=== PATIENT | male | born 1960 | race Caucasian/White ===

== ENCOUNTER 2021-02-03 14:58 | Observation (INO) | payer OTHER, SELFPAY ==
[2021-02-03] VITALS (28 sets, daily range): BP systolic 75–126; BP diastolic 49–76; PULSE 73–123; RESP 11–27; TEMP 35.4–37.4; O2SAT 94–100; BMI 30.2
--- NOTE | ~2021-02-03 | CT_ITS ---
EXAMINATION: CT abdomen pelvis w con DATE: 02/03/2021 16:06 INDICATION: Abdominal pain, cramping and fever TECHNIQUE: Computed tomography (CT) of the abdomen and pelvis was performed with 100 cc Omnipaque 350 intravenous contrast. The dose-length product was 616.03 mGy-cm. Automated exposure control and iter ative reconstruction technique were employed. COMPARISON: CT dated 01/16/2019 FINDINGS: Lung bases are unremarkable. Heart size normal. No significant pleural or pericardial effus ion. There are calcified granulomas of the spleen. There are cholecystectomy clips. There are subtle hypodensities of the liver, too small to characterize. There is fatty infiltration near the falciform ligament. The pancreas, adrenal glands and left kidney are unremarkable. There is a small hypodensity of the ri ght kidney measuring 1 cm, likely benign cysts. No hydronephrosis. Nonobstructive bowel gas pattern. There is a thickened appendix with surrounding inflammatory change, consistent with acute appendiciti s. No evidence for perforation. No free air or free fluid. Colonic diverticulosis without evidence fo r diverticulitis. No significant vascular abnormality. Small fat-containing umbilical hernia. IMPRESSION: 1. Acute uncomplicated appendicitis. Dr. Enrique Triplett discussed with Dr. Dylan Roberts DO at 02/03/2021 16:10 CDT. Reviewed, dictated and finalized at location A.
--- NOTE | 2021-02-03 15:18 | ED.GENADULT ---
HPI - General Adult General Chief complaint: Abdominal Pain Stated complaint: abd cramping Time Seen by Provider: 02/03/21 15:11 Source: RN notes reviewed History of Present Illness HPI narrative: Patient presents to emergency department from home for abdominal pain. Patient states symptoms began approximately 4 hours ago states diffuse abdominal pain described as cramping associated nausea vomiting and diarrhea states he has had subjective fevers at home he denies any chest pain shortness of breath or any other symptoms states he took no medication at home Related Data Allergies Allergy/AdvReac Type Severity Reaction Status Date / Time demeclocycline Allergy Intermediate Unknown Verified 02/19/19 08:28 Penicillins Allergy Unknown Verified 02/04/19 08:23 Review of Systems Review of Systems: Narrative: Gen.: Reports subjective fever Eyes: Denies eye pain or visual change ENT: Denies congestion Respiratory: Denies shortness of breath or cough CV: Denies chest pain or palpitations GI: See HPI denies burning, urgency, frequency or hematuria Musculoskeletal: Denies back pain or muscle pain Neuro: Denies numbness, tingling, weakness or focal weakness Skin: Denies rash Except as documented, all other systems reviewed and negative [facility] Past Medical History Medical History Patient denies significant medical history Family History Family History (Updated 02/04/19 @ 08:23 by DOCTOR UNKNOWN) Father Family history of cardiovascular disease Sibling Carcinoma of colon Other Family history of malignant neoplasm Social History Social History Smoking status: Former smoker Smoking end date: 10/15/01 Alcohol intake: current Exam Narrative: Exam Narrative: APPEARANCE: No acute distress, nontoxic, resting in bed HEENT: Normocephalic, atraumatic, OMM RESPIRATORY: No respiratory distress, clear to auscultation bilaterally with no rhonchi wheezing or rales CARDIOVASCULAR: RRR s murmur ABDOMINAL: Soft nondistended diffusely tender palpation no rebound or guarding MUSCULOSKELETAl: Moves all extremities. No clubbing, cyanosis or edema. NEURO: Awake and alert. Following commands, speech normal, no focal deficits SKIN:: Warm, dry. Normal Color PSYCHIATRIC: Normal affect/mood Course Course Emergency Course: Called discussed with Dr. Chopra for general surgery presentation work-up. Request patient be given Levaquin and Flagyl and will take patient to the OR at this time Dr. Chopra came to see patient in the ED with a car Discussed with patient plan for OR and in agreement at this time Vital Signs Vital signs: Vital Signs Temperature 95.7 F L 02/03/21 15:01 Pulse Rate 116 H 02/03/21 15:01 Respiratory Rate 20 02/03/21 15:01 Blood Pressure 95/61 L 02/03/21 15:01 Pulse Oximetry 97 02/03/21 15:01 Temperature 95.7 F L 02/03/21 15:01 Pulse Rate 123 H 02/03/21 16:47 Respiratory Rate 24 H 02/03/21 16:47 Blood Pressure 112/76 02/03/21 16:47 Pulse Oximetry 97 02/03/21 16:47 Medical Decision Making Vital Signs Vital Signs: Vital Signs Temperature 95.7 F L 02/03/21 15:01 Pulse Rate 116 H 02/03/21 15:01 Respiratory Rate 20 02/03/21 15:01 Blood Pressure 95/61 L 02/03/21 15:01 Pulse Oximetry 97 02/03/21 15:01 Temperature 95.7 F L 02/03/21 15:01 Pulse Rate 123 H 02/03/21 16:47 Respiratory Rate 24 H 02/03/21 16:47 Blood Pressure 112/76 02/03/21 16:47 Pulse Oximetry 97 02/03/21 16:47 Lab Data Result diagrams: 02/03/21 15:09 02/03/21 15:09 Labs: Lab Results 02/03/21 02/03/21 02/03/21 Range/Units 15:09 15:09 15:09 WBC 7.8 (4.5-10.0) K/mm3 RBC 5.75 (4.6-6.20) M/mm3 Hgb 17.2 (14.0-18.0) g/dL Hct 48.5 (42.0-52.0) % MCV 84.3 (80-100) fl MCH 29.9 (26-34) pg MCHC 35.5 (32-36) g/dl RDW
[2021-02-03 15:21] LABS: Basophils Percent Auto 0.3 % (0.2-1.2); Hematocrit 48.5 % (42.0-52.0); Hemoglobin 17.2 g/dL (14.0-18.0); Immature Granulocyte Absolute 0.03 K/mm3 (0.00-0.031); Immature Granulocyte Percent A 0.4 % (0-0.5); Lymphocytes Absolute Auto 0.54 K/mm3 (0.9-3.2); Lymphocytes Percent Auto 6.9 % (18.3-44.2); Mean Corpuscular HGB Conc 35.5 g/dl (32-36); Mean Corpuscular Hemoglobin 29.9 pg (26-34); Mean Corpuscular Volume 84.3 fl (80-100); Mean Platelet Volume 9.1 fl (7.4-10.4); Monocytes Absolute Auto 0.1 K/mm3 (0.1-0.6); Neutrophils Absolute Auto 7.2 K/mm3 (1.3-6.7); Neutrophils Percent Auto 91.4 % (45.5-73.1); Platelet Count Result 193 k/mm3 (150-375); Red Blood Count 5.75 M/mm3 (4.6-6.20); Red Cell Distribution Width 12.5 % (11.5-14.5); White Blood Count 7.8 K/mm3 (4.5-10.0)
[2021-02-03 15:32] LABS: Lactic Acid Reflex 2.2 mmol/L (0.7-2.1)
[2021-02-03 15:34] LABS: Alanine Aminotransferase 17 U/L (4-50); Albumin Level 4.4 g/dL (3.5-5.1); Alkaline Phosphatase 83 U/L (38-126); Anion Gap 11 mmol/L (8-16); Aspartate Amino Transferase 26 U/L (17-59); Bilirubin,Total 2.5 mg/dL (0.2-1.3); Blood Urea Nitrogen 14 mg/dL (9-20); Calcium 8.9 mg/dL (8.4-10.2); Carbon Dioxide 22 mmol/L (22-30); Chloride 102 mmol/L (98-107); Estimated CRCL calculation 71 ml/min; Estimated Glomerular Filt Rate > 60; Glucose 165 mg/dL (75-110); Lipase 50 U/L (23-300); Potassium 3.8 mmol/L (3.4-5.0); Sodium 135 mmol/L (137-145)
[2021-02-03] MEDS: ONDANSETRON INJ 4 MG/2 ML VIAL IV PUSH (15:50)
[2021-02-03] MEDS: SODIUM CHLORIDE 0.9% IV 1,000 ML 999 ML IV CONT ×2 (15:50→16:34)
--- NOTE | 2021-02-03 16:53 | WPDANESEPP ---
Anes - Eval Pre Procedure Procedure: Operation Date: 02/03/21 17:00 Proposed Procedures p Laparoscopic Appendectomy - Shauna Chopra MD Date/Time: 02/03/21 16:53 Pre Op Diagnosis: abd cramping Patient Data Age: 60 Gender: M Height: 1.83 m Weight: 90.7 kg Last Vital Signs Temp 35.4 C L 02/03/21 15:01 Pulse 123 H 02/03/21 16:47 Resp 24 H 02/03/21 16:47 BP 112/76 02/03/21 16:47 Pulse Ox 97 02/03/21 16:47 Allergies Allergy/AdvReac Type Severity Reaction Status Date / Time demeclocycline Allergy Intermediate Unknown Verified 02/19/19 08:28 Penicillins Allergy Unknown Verified 02/04/19 08:23 Laboratory Tests 02/03/21 02/03/21 02/03/21 15:09 15:09 15:09 WBC 7.8 K/mm3 K/mm3 (4.5-10.0) RBC 5.75 M/mm3 M/mm3 (4.6-6.20) Hgb 17.2 g/dL g/dL (14.0-18.0) Hct 48.5 % % (42.0-52.0) MCV 84.3 fl fl (80-100) MCH 29.9 pg pg (26-34) MCHC 35.5 g/dl g/dl (32-36) RDW 12.5 % % (11.5-14.5) Plt Count 193 k/mm3 k/mm3 (150-375) MPV 9.1 fl fl (7.4-10.4) Immature Gran % (Auto) 0.4 % % (0-0.5) Neut % (Auto) 91.4 % H % (45.5-73.1) Lymph % (Auto) 6.9 % L % (18.3-44.2) [place] % (Auto) 1.0 % L % (2.6-8.5) Eos % (Auto) 0.0 % % (0-4.4) Baso % (Auto) 0.3 % % (0.2-1.2) Lymph # (Auto) 0.54 K/mm3 L K/mm3 (0.9-3.2) [place] # (Auto) 0.1 K/mm3 K/mm3 (0.1-0.6) Eos # (Auto) 0.0 K/mm3 K/mm3 (0-0.3) Baso # (Auto) 0.0 K/mm3 K/mm3 (0.0-0.1) Abs Immat Gran (auto) 0.03 K/mm3 K/mm3 (0.00-0.031) Absolute Neuts (auto) 7.2 K/mm3 H K/mm3 (1.3-6.7) Absolute Nucleated RBC 0.0 K/mm3 K/mm3 (0.0-0.012) Nucleated RBC % 0.0 % % (0.0-0.2) Sodium 135 mmol/L L mmol/L (137-145) Potassium 3.8 mmol/L mmol/L (3.4-5.0) Chloride 102 mmol/L mmol/L (98-107) Carbon Dioxide 22 mmol/L mmol/L (22-30) Anion Gap 11 mmol/L mmol/L (8-16) BUN 14 mg/dL mg/dL (9-20) Creatinine 1.10 mg/dL mg/dL (0.7-1.3) Estim Creat Clear Calc 71 ml/min ml/min Estimated GFR > 60 (59 - ) Glucose 165 mg/dL H mg/dL (75-110) Lactic Acid 2.2 mmol/L H mmol/L (0.7-2.1) Calcium 8.9 mg/dL mg/dL (8.4-10.2) Total Bilirubin 2.5 mg/dL H mg/dL (0.2-1.3) AST 26 U/L U/L (17-59) ALT 17 U/L U/L (4-50) Alkaline Phosphatase 83 U/L U/L (38-126) Total Protein 8.0 g/dL g/dL (6.3-8.2) Albumin 4.4 g/dL g/dL (3.5-5.1) Lipase 50 U/L U/L (23-300) Patient hx anesthesia problems: none Family hx anesthesia problems: none PMFSH Past Medical History Medical History Patient denies significant medical history Family History Family History (Updated 02/04/19 @ 08:23 by DOCTOR UNKNOWN) Father Family history of cardiovascular disease Sibling Carcinoma of colon Other Family history of malignant neoplasm Social History Social History Smoking status: Former smoker Smoking end date: 10/15/01 Alcohol intake: current Exam Day of Procedure 02/03/21 16:53
--- NOTE | 2021-02-03 17:02 | PM.IMHP ---
H&P: HPI History of Present Illness Date/Time: 02/03/21 17:02 Pt is a 60 y/o M presenting to ED c/o 1 d h/o progressively worsening abd pain. Pt reports pain is mostly located in RLQ but it radiates diffusely c cramping. Pt reports he has been very weak and tired. Pt reports poor appetite and N/V. Pt also c a few episodes of diarrhea. Pt denies any previous episodes. Chief Complaint: acute appendicitis Review of Systems Constitutional: Constitutional: Reports anorexia, Reports body ache(s), Reports chills, Reports fatigue, Reports fever(s), Reports lethargy, Reports malaise, Reports poor appetite, Reports weakness, Denies weight gain and Denies weight loss Eyes: Eyes: Reports no additional eye complaints ENT: Reports system reviewed and no additional complaints, except as documented Cardiovascular: Cardiovascular: Reports no additional cardiovascular complaints Respiratory: Respiratory: Reports no additional respiratory complaints Gastrointestinal: Gastrointestinal: Reports as per HPI Genitourinary: Genitourinary: Reports no additional male genitourinary complaints Musculoskeletal: Musculoskeletal: Reports no additional musculoskeletal complaints Integumentary/Breasts: Skin/Breast: Reports system reviewed and no additional complaints, except as docu Neurologic: Reports system reviewed and no additional complaints, except as documented Psychiatric: Psychiatric: Reports no additional psychiatric complaints Endocrine: Endocrine: Reports no additional endocrine complaints Hematologic/Lymphatic: Hematologic/Lymphatic: Reports no additional hematologic/lymphatic complaints Allergic/Immunologic: Allergic/Immunologic: Reports no additional allergic/immunologic complaints PMFSH Past Medical History Medical History Patient denies significant medical history Family History Family History Father Family history of cardiovascular disease Sibling Carcinoma of colon Other Family history of malignant neoplasm Social History Social History Smoking status: Former smoker Smoking end date: 10/15/01 Alcohol intake: current Comments PSxH - bilateral hernia repair, cholecystectomy Meds Home Medications and Allergies Allergies Allergy/AdvReac Type Severity Reaction Status Date / Time demeclocycline Allergy Intermediate Unknown Verified 02/19/19 08:28 Penicillins Allergy Unknown Verified 02/04/19 08:23 Vital Signs Vital Signs - 24 hr 02/03/21 15:01 02/03/21 15:36 02/03/21 15:45 Temperature 35.4 C L Pulse Rate 116 H 111 H 101 H Respiratory Rate 20 20 20 Blood Pressure 95/61 L Pulse Oximetry 97 98 95 02/03/21 15:46 02/03/21 16:29 02/03/21 16:30 Temperature Pulse Rate 107 H 109 H 112 H Respiratory Rate 18 20 18 Blood Pressure 126/76 Pulse Oximetry 94 95 96 02/03/21 16:31 02/03/21 16:32 02/03/21 16:43 Temperature Pulse Rate 112 H 110 H 116 H Respiratory Rate 11 L 27 H 22 H Blood Pressure 101/68 103/70 100/63 Pulse Oximetry 96 97 98 02/03/21 16:45 02/03/21 16:47 Temperature Pulse Rate 110 H 123 H Respiratory Rate 20 24 H Blood Pressure 112/76 Pulse Oximetry 96 97 Exam Const: General: healthy appearing, alert, awake, acute distress moderate, ill appearing, lethargic, tired appearing and uncomfortable Nutritional Appearance: average body habitus Orientation/consciousness: patient oriented x3 Limitations: no limitations HENMT: Head: normal to inspection, normocephalic and atraumatic Ears: hearing grossly normal bilaterally General nose exam: Normal external nose present Face and sinus: normal facial exam Mouth: Yes Normal oral and palatal mucosa present and Yes moist mucous membranes abnormal Eyes: General: appearance normal, both eyes and all related structures Pupils: Equal, round and reactive pupils
--- NOTE | 2021-02-03 17:08 | WPDHPUPDATE1 ---
History and Physical Update Update Date/Time: 02/03/21 17:08 History and Physical has been reviewed, including an updated exam of the patient. There are NO changes in the patient's condition. Risks, benefits, and alternatives have been discussed and questions answered. Patient agrees to proceed with procedure.
[2021-02-03] MEDS: LACTATED RINGERS 1,000 ML 30 ML IV CONT ×4 (17:20→19:39)
--- NOTE | 2021-02-03 17:21 | WPDANESEFPP ---
Anes - Eval Final PreProcedure Day of Procedure 02/03/21 17:21 Patient weight: overweight Heart: tachycardia Lungs: clear to auscultation Airway: Mallampati scale class II Neurological: alert and oriented Last oral intake: >/= 8 hours ASA classification: II Emergent: yes Anesthetic plan: proceed Anesthesia type and monitoring: general ETT and standard monitoring Informed Consent: The patient's anesthetic plan and its attendant risks and benefits were discussed with the patient/family/POA. Questions were solicited and answers provided to the satisfaction of the patient/family/POA.
[2021-02-03] MEDS: metroNIDAZOLE 500 MG/ISO 100ML 500 MG/100 ML BAG 100 MG IVPB (17:22)
[2021-02-03] MEDS: KETOROLAC 30 MG/ML VIAL (*BKC) IV PUSH (17:53)
[2021-02-03 18:00] LABS: Add Urine Microscopic? YES; Appearance Urine Clear (Clear); Bilirubin Urine Negative (Negative); Blood Urine Negative (Negative); Color Urine Yellow (Yellow); Glucose Urine UA Negative (Negative); Ketones Urine Trace mg/dL (Negative); Leukocyte Esterase Ur Negative LEU/UL (Negative); Mucus Urine Rare /lpf; Nitrate Urine Negative (Negative); Protein Urine 1+ mg/dL (Negative); RBC Urine 0-2 /hpf (0-2); Squamous Epithelial Cell Urine Rare /hpf (Few); Urobilinogen Urine Negative mg/dL (<2.0); WBC Urine 0-3 /hpf
--- NOTE | 2021-02-03 18:10 | PM.PROC ---
Procedure Note - Detailed Date of procedure: 02/03/21 Pre-op diagnosis: abd cramping acute appendicitis Post-op diagnosis: same Procedure performed: Laparoscopic appendectomy Description of procedure: The patient was brought into the operating room placed in the supine position. After adequate induction of general anesthesia, the patient was prepped and draped in normal sterile fashion. A time-out was then done to verify the patient's identity as well as the procedure being performed. I began by making a 5 mm incision in the infraumbilical region. A 5 mm Optiview trocar within used to gain access into the peritoneal cavity. Once into the peritoneal cavity, CO2 gas was insufflated. After adequate pneumoperitoneum was achieved, the laparoscope was placed into the 5 mm trocar. Under direct visualization, I went ahead and placed a further 5 mm suprapubic port as well as a 12 mm port in the left lower abdomen. At this point, I was able to visualize cecum. The cecum was retracted both cephalad and medial, and this allowed us to expose the appendix. The appendix was noted to be very dilated, injected, and inflamed. There was no obvious perforation of the appendix. In the mid body of the appendix, there was noted to be some necrotic changes. There was also noted to be a minimal amount of free fluid, which was thin, serous in appearance. I then grasped the appendix near the tip of the appendix and retracted both anterior and lateral. This allowed exposure of the base of the appendix with the cecum. I then created a window with the [place] dissector between the appendix and the mesoappendix at the base of the appendix. Once this was achieved, a vascular staple load on the Endo-LUIS was placed through the 12 mm port site and subsequently transected the mesoappendix. I then reloaded the Endo-LUIS with a blue staple load and transected the base of the appendix with the cecum. Once the appendiceal specimen was completely detached, a Endo pouch was placed through the 12 mm port site. The appendix was placed into the Endo pouch and removed through the 12 mm port site. The appendix will now be sent to pathology for further review. I then visualized the right lower quadrant, both staple lines were noted to be intact and hemostatic. No other pathology was noted in the right lower quadrant or pelvis. I then moved the laparoscope to the 5 mm suprapubic port. I then visualized our port of entry at the 5 mm infraumbilical site. No iatrogenic injury or other pathology was seen in the upper abdomen. I then desufflated the abdomen and all ports were removed. The fascia of the 12 mm port site was closed with an 0 Vicryl figure of 8 suture. All port sites were then closed with 4 O Monocryl subcuticular suture. The patient tolerated the procedure well and was extubated in the operating room postoperatively. The patient will be transferred to the recovery room in stable condition. Anesthesia: GETA Surgeon: Shauna Chopra MD Estimated blood loss (mL): 5 Drains: No Packing: No Pathology: yes Complications: No immediate complications Condition: stable Disposition: PACU Findings: Acute uncomplicated appendicitis
[2021-02-03 18:18] LABS: Reflex Lactic Acid Yes or No Add Lactic
--- NOTE | 2021-02-03 20:14 | ADMGEN ---
This patient, Clyde Santillan, was admitted to Medical Room 342-01. Patient/family oriented to hospital policies and general routines including ID bracelet, bed and alarms, visiting hours, pain management, procedures, bathroom and other care routines, personal items, smoking policy, room service/diet, and visiting hours. Information on how to activate the Rapid Response Team has been discussed. Patient/Family are encouraged to report perceived risks to care and to ask questions if they do not understand what they are told or what they should do.
[2021-02-03] MEDS: LACTATED RINGERS 1,000 ML 100 ML IV CONT (20:20)
[2021-02-03 21:32] LABS: Lactic Acid 1.6 mmol/L (0.7-2.1)
[2021-02-04] VITALS: BP 99/58; PULSE 85; RESP 14; TEMP 36.5; O2SAT 99
[2021-02-04 04:00] VITALS: BP 94/54; PULSE 76; RESP 16; TEMP 36; O2SAT 98
[2021-02-04 05:31] LABS: Hematocrit 37.8 % (42.0-52.0); Hemoglobin 13.4 g/dL (14.0-18.0); Mean Corpuscular HGB Conc 35.4 g/dl (32-36); Mean Corpuscular Volume 84.8 fl (80-100); Mean Platelet Volume 9.5 fl (7.4-10.4); Platelet Count Result 152 k/mm3 (150-375); Red Blood Count 4.46 M/mm3 (4.6-6.20); Red Cell Distribution Width 12.7 % (11.5-14.5); White Blood Count 19.1 K/mm3 (4.5-10.0)
[2021-02-04 05:55] LABS: Anion Gap 5 mmol/L (8-16); Blood Urea Nitrogen 16 mg/dL (9-20); Calcium 8.1 mg/dL (8.4-10.2); Carbon Dioxide 25 mmol/L (22-30); Chloride 106 mmol/L (98-107); Estimated CRCL calculation 80 ml/min; Estimated Glomerular Filt Rate > 60; Glucose 129 mg/dL (75-110); Potassium 4.2 mmol/L (3.4-5.0); Sodium 136 mmol/L (137-145)
--- NOTE | 2021-02-04 10:09 | PM.DS ---
DS: Admitting Diagnosis Admitting Diagnosis Admitting Diagnosis: acute appendicitis DS: Discharge Diagnosis Discharge Diagnosis (1) Acute appendicitis: Code(s): K35.80 - Unspecified acute appendicitis Status: Acute Assessment and Plan: s/p lap appy, feels much improved, home c po analgesia, colace, routine postop care, f/u 2 wks DS: Summary Hospital Course Reason for hospitalization: acute appendicitis Hospital Course: Pt is a 60 y/o M presenting to ED c/o 1 d h/o worsening lower abd pain assoc c anorexia, nausea, chills. Workup, including imaging, significant for acute appendicitis. Pt noted to have SIRS response c tachycardia and hypotension. Upon eval, decision was made to perform emergent appendectomy. Pt taken to OR and lap appy done, please see full op note for details. Pt did well postop and transferred to floor. Pt noted to be dehydrated and resus c IVF proved to be successful. On POD 1, pt is fanta diet and pain is well controlled. Pt is OOB and ambulating s issue. Status at Discharge Functional status at discharge: independent ambulation Overall status at discharge: patient is progressing back to baseline Time Spent with Patient Time attestation: Total time spent providing and/or coordinating discharge services: Time spent: Less than 30 minutes Exam Const: General: cooperative, comfortable and no acute distress Nutritional Appearance: average body habitus Orientation/consciousness: patient oriented x3 Limitations: no limitations Chest: Chest palpation & inspection: normal inspection of the chest Resp: Effort & Inspection: normal respiratory effort Auscultation: clear to auscultation bilaterally Cardio: Rate: regular rate Rhythm: regular rhythm GI: Inspection: normal to inspection and incision GI Palp: Yes Soft to palpation and Yes Tenderness to palpation present (GI) Other: soft, sl dist, armani TTP, incisions C/D/I DS: Data Data Completed and Pending Pending studies at discharge: Pending at discharge 02/03/21 17:46 Surgical [PTH] Routine Labs on day of discharge: Labs from last 24 hours 02/04/21 02/04/21 02/03/21 05:18 05:18 21:18 WBC 19.1 H RBC 4.46 L Hgb 13.4 L D Hct 37.8 L MCV 84.8 MCH 30.0 MCHC 35.4 RDW 12.7 Plt Count 152 MPV 9.5 Immature Gran % (Auto) Neut % (Auto) Lymph % (Auto) [place] % (Auto) Eos % (Auto) Baso % (Auto) Lymph # (Auto) [place] # (Auto) Eos # (Auto) Baso # (Auto) Abs Immat Gran (auto) Absolute Neuts (auto) Absolute Nucleated RBC Nucleated RBC % Sodium 136 L Potassium 4.2 Chloride 106 Carbon Dioxide 25 Anion Gap 5 L BUN 16 Creatinine 1.10 Estim Creat Clear Calc 80 Estimated GFR > 60 Glucose 129 H Lactic Acid 1.6 Calcium 8.1 L Total Bilirubin AST ALT Alkaline Phosphatase Total Protein Albumin Lipase Urine Color Urine Appearance Urine pH Ur Specific [place] Urine Protein Urine Glucose (UA) Urine Ketones Ur Blood (Man) Urine Nitrate Urine Bilirubin Urine Urobilinogen Leukocyte Esterase Rfl Urine RBC Urine WBC Ur Squamous Epith Cells Urine Mucus 02/03/21 02/03/21 02/03/21 16:54 15:09 15:09 WBC RBC Hgb Hct MCV MCH MCHC RDW Plt Count MPV Immature Gran % (Auto) Neut % (Auto) Lymph % (Auto) [place] % (Auto) Eos % (Auto) Baso % (Auto) Lymph # (Auto) [place] # (Auto) Eos # (Auto) Baso # (Auto) Abs Immat Gran (auto) Absolute Neuts (auto) Absolute Nucleated RBC Nucleated RBC % Sodium 135 L Potassium 3.8 Chloride 102 Carbon Dioxide 22 Anion Gap 11 BUN 14 Creatinine 1.10 Estim Creat Clear Calc 71 Estimated GFR > 60 Glucose 165 H Lactic Acid 2.2 H Calcium 8.9 Total Bilirubin 2.5 H AST 26 ALT 17 Alkaline Phosphatase 83 T
== END 2021-02-04 10:57 | disposition home or self-care (01) ==
LOC: ANHED 16:24 → ANHSURGERY 16:49 → ANH3MED 20:07
PROVIDERS: Admitting Provider Surgery; Emergency Provider Emergency Medicine; Visit Provider Surgery
PROC: 0DTJ4ZZ Resection of Appendix, Percutaneous Endoscopic Approach (ICD-10-PCS; CPT 44970; principal; 2021-02-03 17:00)
DX: K35.32 Acute appendicitis with perforation, localized peritonitis, and gangrene, without abscess (principal); R00.0 Tachycardia, unspecified; I95.9 Hypotension, unspecified; Z87.891 Personal history of nicotine dependence
CPT/HCPCS: 44970; 36415; 74177; 80048; 80053; 81001; 83605; 83690; 85025; 85027; 88304; 96360; 96361; 96365; 96367; 96368; 96375; 99285; G0378; J0131; J0330; J1100; J1885; J1956; J2250; J2370; J2405; J3010; J7030; J7120; Q9967

== ENCOUNTER 2023-06-05 03:10 | Day surgery (SDC) | payer OTHER, SELFPAY ==
[2023-05-28 14:22] VITALS: BMI 27.1
--- NOTE | 2023-06-04 14:43 | WPDANESEPPF ---
Anes - Initial Pre Proc Eval Procedure: Operation Date: 06/05/23 08:45 Proposed Procedures p Colonoscopy - Kendall Bojorquez MD Date/Time: 06/04/23 14:43 Surgeon: Kendall Bojorquez MD Pre Op Diagnosis: family hx colon ca Patient Data Age: 62 Gender: M Height: 1.83 m Weight: 90.9 kg Allergies Allergy/AdvReac Type Severity Reaction Status Date / Time Penicillins Allergy Unknown Unknown Verified 06/05/23 07:22 demeclocycline Allergy Unknown Verified 06/05/23 07:22 [From Declomycin] Home Medications Medication Instructions Recorded Confirmed Type rosuvastatin 5 mg tablet 5 mg PO DAILY #30 tabs 05/25/23 06/05/23 Rx Patient hx anesthesia problems: none Family hx anesthesia problems: none Results Review: All pre-operative results and documents have been reviewed as part of the pre-operative evaluation. [facility] Past Medical History Medical History (Updated 06/05/23 @ 07:42 by Daniel Jansen DO) Acute appendicitis Calculus of gallbladder with acute cholecystitis without obstruction Chronic cholecystitis with calculus Encounter for surgical aftercare following surgery on the digestive system FHx: colon cancer Hx of bladder cancer Hyperlipidemia Inguinal hernia bilateral, non-recurrent Patient denies significant medical history Surgical History Surgical History (Updated 03/15/23 @ 23:11 by Kylee Fiore MD) H/O colonoscopy with polypectomy History of laparoscopic appendectomy Hx of appendectomy Hx of hernia repair multiple Family History Family History (Updated 03/15/23 @ 16:50 by Kylee Fiore MD) Father Family history of cardiovascular disease Carcinoma of colon Sibling Carcinoma of colon Other Family history of malignant neoplasm Social History Social History (Updated 03/15/23 @ 16:20 by Nadya Max) Social History: Smoking packs per day: 1.5 Smoking cigarettes per day: 30.0 Years smoked: 20 Smoking pack-years: 30.00 Smoking status: Former smoker Tobacco type: cigarettes Smoking end date: 10/15/20 Alcohol intake: current Alcohol use details: Occasionally Substance use: former Substance use type: marijuana Lack of Transportation: No Lack of Food: Never True Current Housing: I Have Housing Concerned About Future Housing: No Difficulty Paying Gas/Electric Bills: No Difficulty Paying for Meds: No Currently Unemployed: No Education: Decline to Answer Difficulty w/ Childcare or Family Care: No Living arrangements: with family Occupation/Education: occupation Gender identity (if verbalized by the patient): Male Sexual Orientation (if Verbalized by the Patient): Straight or Heterosexual Spiritual care concerns: No Anes - Eval Final PreProcedure Day of Procedure 06/04/23 14:43 Patient weight: overweight Heart: regular rate and rhythm Lungs: clear to auscultation Airway: Mallampati scale class II Neurological: alert and oriented Last oral intake: >/= 8 hours ASA classification: III Emergent: no Anesthetic plan: proceed Anesthesia type and monitoring: general GIVS and standard monitoring Results Review: All pre-operative results and documents have been reviewed as part of the pre-operative evaluation. Informed Consent: The patient's anesthetic plan and its attendant risks and benefits were discussed with the patient/family/POA. Questions were solicited and answers provided to the satisfaction of the patient/family/POA.
[2023-06-05 07:17] VITALS: BP 122/78; PULSE 52; RESP 18; TEMP 35.7; O2SAT 98; BMI 26.9
[2023-06-05] MEDS: LACTATED RINGERS 1,000 ML 150 ML IV CONT (07:33)
--- NOTE | 2023-06-05 08:11 | PM.HPGS ---
History of Present Illness History of Present Illness Consent: Risks, benefits, and alternatives have been discussed and questions answered. Patient agrees to proceed with procedure. Chief complaint: family hx colon ca Narrative: Clyde Santillan is a 62 year old male Presents for screening colonoscopy. Patient's current weight appetite and bowel movements are normal. Patient denies abdominal pain. He has had no bleeding. Family history is significant this father and grandfather both have had colon cancer. Patient reports he has never previously had a colonoscopy. States he did have bladder cancer at with bladder polyps as well. Patient presents today for neoplasia screening colonoscopy. Review of Systems Review of Systems: Review of systems noncontributory. [facility] Past Medical History Medical History (Updated 06/05/23 @ 07:42 by Daniel Jansen DO) Acute appendicitis Calculus of gallbladder with acute cholecystitis without obstruction Chronic cholecystitis with calculus Encounter for surgical aftercare following surgery on the digestive system FHx: colon cancer Hx of bladder cancer Hyperlipidemia Inguinal hernia bilateral, non-recurrent Patient denies significant medical history Surgical History Surgical History (Updated 03/15/23 @ 23:11 by Kylee Fiore MD) H/O colonoscopy with polypectomy History of laparoscopic appendectomy Hx of appendectomy Hx of hernia repair multiple Family History Family History (Updated 03/15/23 @ 16:50 by Kylee Fiore MD) Father Family history of cardiovascular disease Carcinoma of colon Sibling Carcinoma of colon Other Family history of malignant neoplasm Social History Social History (Updated 03/15/23 @ 16:20 by Nadya Max) Social History: Smoking packs per day: 1.5 Smoking cigarettes per day: 30.0 Years smoked: 20 Smoking pack-years: 30.00 Smoking status: Former smoker Tobacco type: cigarettes Smoking end date: 10/15/20 Alcohol intake: current Alcohol use details: Occasionally Substance use: former Substance use type: marijuana Lack of Transportation: No Lack of Food: Never True Current Housing: I Have Housing Concerned About Future Housing: No Difficulty Paying Gas/Electric Bills: No Difficulty Paying for Meds: No Currently Unemployed: No Education: Decline to Answer Difficulty w/ Childcare or Family Care: No Living arrangements: with family Occupation/Education: occupation Gender identity (if verbalized by the patient): Male Sexual Orientation (if Verbalized by the Patient): Straight or Heterosexual Spiritual care concerns: No Meds Home Medications and Allergies Home Medications Medication Instructions Recorded Confirmed Type rosuvastatin 5 mg tablet 5 mg PO DAILY #30 tabs 05/25/23 06/05/23 Rx Allergies Allergy/AdvReac Type Severity Reaction Status Date / Time Penicillins Allergy Unknown Unknown Verified 06/05/23 07:22 demeclocycline Allergy Unknown Verified 06/05/23 07:22 [From Declomycin] Vital Signs Vital Signs - 24 hr 06/05/23 07:17 Temperature 96.3 F L Pulse Rate 52 L Respiratory Rate 18 Blood Pressure 122/78 Pulse Oximetry 98 Oxygen Delivery Room Air Exam Narrative: Physical exam reveals patient to be alert. Vital signs stable. HEENT exam is unremarkable. Patient is anicteric. Lungs are clear to auscultation and percussion. Heart is without murmur or extra sounds. Abdomen bowel sounds are present soft nontender with no hepatosplenomegaly. Digital external rectal exam is normal. Assessment and Plan Assessment and plan (1) Colon cancer screening: Code(s): Z12.11 - Encounter for screening for malignant neoplasm of colon Status: Acute Assessment and Plan: Patient presents for colon screening. patient is a family history of colon cancer in father brother. Suggest follow-up colonosc
[2023-06-05 09:14] VITALS: BP 95/66; PULSE 62; RESP 15; O2SAT 95
[2023-06-05 09:24] VITALS: BP 95/64; PULSE 63; RESP 22; O2SAT 94
[2023-06-05 09:34] VITALS: BP 101/67; PULSE 60; RESP 14; O2SAT 98
== END 2023-06-05 09:46 | disposition home or self-care (01) ==
PROVIDERS: PCP Family Medicine; Visit Provider Internal Medicine Gastroenterology
PROC: 0DJD8ZZ Inspection of Lower Intestinal Tract, Via Natural or Artificial Opening Endoscopic (ICD-10-PCS; CPT 45378; principal; 2023-06-05 08:45)
DX: Z12.11 Encounter for screening for malignant neoplasm of colon (principal); Z80.0 Family history of malignant neoplasm of digestive organs; K64.8 Other hemorrhoids; E78.5 Hyperlipidemia, unspecified; Z85.51 Personal history of malignant neoplasm of bladder; Z87.891 Personal history of nicotine dependence
CPT/HCPCS: 45378; J2704; J7120